=== PATIENT | male | born 1950 ===

== ENCOUNTER 2023-07-20 06:28 | Day surgery (SDC) | payer MEDICARE, OTHER, SELFPAY ==
--- NOTE | 2023-07-18 15:07 | PTCARENOTE ---
Patients 06/08 potassium- 3.3- Dr. Perez notified, no additional interventions required
[2023-07-20] VITALS (8 sets, daily range): BP systolic 116–160; BP diastolic 74–88; BMI 22.7
[2023-07-20] MEDS: Pyridium 200 MG PO (07:34)
[2023-07-20] MEDS: NORMOSOL-R 1000 IV (08:00)
--- NOTE | 2023-07-20 10:52 | SUR.PHASEI ---
patient post op cystoscopy and stone removal, comfortable in pacu, easily arousable, Dr Alexander visits and explains OR findings and post op plan
[2023-07-24 12:18] LABS: Stone Analysis Mass 190 mg
== END 2023-07-20 12:15 | disposition home or self-care (01) ==
LOC: SDS 06:28
PROVIDERS: ATTENDING PHYSICIAN Specialist
DX: N13.2 Hydronephrosis with renal and ureteral calculous obstruction (principal); N29 Other disorders of kidney and ureter in diseases classified elsewhere; E83.59 Other disorders of calcium metabolism
CPT/HCPCS: 52356; 74018; 76000; 82365; 93005; A4300; C1894; C2617

== ENCOUNTER → 2023-08-21 06:36 | Day surgery (SDC) | payer MEDICARE, OTHER, SELFPAY | LOC: GI 06:36 | PROVIDERS: ATTENDING PHYSICIAN Internal Medicine Gastroenterology | DX: Z12.11 Encounter for screening for malignant neoplasm of colon (principal); D12.3 Benign neoplasm of transverse colon; K57.30 Diverticulosis of large intestine without perforation or abscess without bleeding; K64.8 Other hemorrhoids; Z86.010 Personal history of colon polyps | CPT/HCPCS: 45385; 88305 ==

== ENCOUNTER → 2023-12-19 14:32 | Outpatient (REF) | payer MEDICARE, OTHER, SELFPAY | LOC: HWRAD 14:32 | PROVIDERS: ATTENDING PHYSICIAN Specialist; FAMILY PHYSICIAN Internal Medicine | DX: N20.0 Calculus of kidney (principal) | CPT/HCPCS: 74018 ==

== ENCOUNTER 2024-01-04 18:33 | Inpatient (IN) | payer MEDICARE, OTHER, SELFPAY ==
[2024-01-04] VITALS (8 sets, daily range): BP systolic 117–191; BP diastolic 65–89; BMI 22.9
--- NOTE | 2024-01-04 15:26 | ED.GENMED ---
History of Present Illness
<Zara Murphy PA-C - Last Filed: 01/04/24 19:30>
General
Chief Complaint: Abdominal Symptoms
Source: patient
Exam Limitations: none
Time Seen by Provider: 01/04/24 15:25
Nursing documentation reviewed up to this point in time: agreed with
History of Present Illness
History of Present Illness:
73-year-old male with a past medical history of kidney stones with previous left ureteral sent placement, hypertension, hyperlipidemia, hypothyroidism, asthma presenting emergency department today with concerns of left-sided abdominal pain and
diffuse flank pain. Patient reports that this feels exactly like his kidney stones. Patient states that this current episode of pain started earlier this morning. He follows with Dr. Alexander and called his office today and they advised him to take
Tylenol or Motrin for pain. Patient states that his pain got worse and he started to have vomiting and so he reported to the emergency department. Patient denies any fevers or chills, burning with urination, urinary frequency, urinary urgency.
Denies hematuria. Patient had outpatient imagining study done with Dr. Alexander 10 days ago which demonstrated large stones in the right kidney.
Review of Systems
<Zara Murphy PA-C - Last Filed: 01/04/24 19:30>
Review of Systems
All Other Systems: ROS reviewed and negative except as documented in HPI and ROS
Phy Exam
<Zara Murphy PA-C - Last Filed: 01/04/24 19:30>
Physical Exam
Physical Exam:
General: Patient appears uncomfortable secondary to pain, but non-toxic.
Skin: Warm and dry, no rashes or lesions
Head: Normocephalic, atraumatic
Eyes: Sclera non-icteric. EOMs intact. PERRLA.
Cardiac: Regular rate and rhythm, no murmurs.
Peripheral Vascular: No lower extremity swelling or edema
Pulm: Normal respiratory effort
Abdomen: Bilateral lower abdominal quadrants tender to palpation with guarding. Bilateral CVA tenderness.
Neuro: CN II-XII intact, no focal neurologic deficits.
Psychiatric: Appropriate mood and affect.
Course
Jameylt;Zara Murphy PA-C - Last Filed: 01/04/24 19:30>
Orders/Labs/Results
Orders:
Orders
01/04/24 15:39
0.9% Sodium Chloride 500 ml [Nss] 500 ml IV BOLUS
Ketorolac [Toradol] 15 mg IV NOW STA
Ondansetron Injectable [Zofran] 4 mg IV NOW STA
01/04/24 15:40
CT Abd/pel Without Iv Or Oral Urgent
Comment:
Reason For Exam: left flank pain, left abdominal pain
01/04/24 16:18
Complete Blood Count/With Diff Urgent
Comprehensive Metabolic Panel Urgent
Lipase Urgent
01/04/24 17:20
CefTRIAXone [Rocephin] 1,000 mg IV NOW STA
01/04/24 17:24
0.9% Sodium Chloride 500 ml [Nss] 500 ml IV BOLUS
01/04/24 17:26
Prochlorperazine [Compazine] 5 mg IV NOW STA
01/04/24 17:28
HYDROmorphone [Dilaudid] 0.5 mg IV NOW STA
01/04/24 17:49
Urinalysis Reflex To Culture Urgent
Date Specimen was Collected: 01/04/24
Time Specimen was Collected: 15:46
Urine Microscopic Reflex Cult Urgent
01/04/24 18:02
UROLOGY CONSULT Urgent
Consulting Provider: Hema Martinez
Was physician already notified: Yes
01/04/24 18:19
CefTRIAXone [Rocephin] 1,000 mg IV NOW STA
01/04/24 18:21
Admit/Transfer Patient As Directed
Co-Sign Provider:
Level of Care: Inpatient admission
Assign to:: Telemetry
Physician / Group: suzie martinez
Diagnosis: Hold obstructive uropathy, hydronephrosis, pyelonephritis
Reason for Telemetry: Arrhythmia
Date to Stop Telemetry: 01/07/24
Time to Stop Telemetry: 11:00
Reason for Hospitalization: Hold obstructive uropathy, hydronephrosis, pyelonephritis
Expected length of stay greater than two midnights?: Yes
ELOS- Estimated Length of Stay in days: 3
I certify the patient meets the requirements for IP care: Yes
PRN Pain Medication Management As Directed
May give lesser potent ordered pain med per pt: Yes
preference::
Protocol:: Medication orders for pain may be administered in a
manner that supports deferring to patient preference
when the pt is:
- Requesting an ordered lesser potent pain medication.
Least to most potent pain medications are defined
as: acetaminophen < NSAID < tramadol < opioids
(morphine, oxycodone, hydromorphone).
- Requesting a lesser dose of the same medication IF
ORDERED.
- Requesting a less intrusive route of administration
if both routes are prescribed by the provider (PO <
IV).
01/04/24 18:23
Code Status As Directed
Resuscitation Status: Full Code
01/05/24 Breakfast
NPO
Allow oral meds: Yes
Allow clear liquids: No
01/05/24 17:00
CefTRIAXone [Rocephin] 2,000 mg IV Q24H
01/07/24 11:00
DC Protocol for Telemetry ONCE
Abnormal Lab Results
01/04/24 01/04/24
16:18 17:49
WBC 17.1 H 10^3/uL
(4.8-10.8)
Abs Immat Gran (auto) 0.1 H 10^3/uL
(0-0.05)
Absolute Neuts (auto) 14.6 H 10^3/uL
(1.4-6.5)
Absolute Monos (auto) 0.9 H 10^3/uL
(0.1-0.6)
Neutrophils % 85.1 H %
(42.2-75.2)
Lymphocytes % 8.1 L %
(20.5-51.1)
Carbon Dioxide 33 H mmol/L
(22-30)
BUN 25 H mg/dl
(9-20)
Glucose 135 H mg/dl
(70-99)
Calcium 10.5 H mg/dl
(8.4-10.2)
Urine Ketones 2+ A
(Negative)
Ur Occult Blood Reflex 2+ A
(Negative)
Urine Bacteria (Reflex) Few A
(Negative)
01/04/24 16:18
01/04/24 16:18
Vital Signs
Initial and Last Documented VS:
Initial Vital Signs
Temp Pulse Resp BP Pulse Ox
98.5 F 69 16 172/89 98
01/04/24 15:19 01/04/24 15:19 01/04/24 15:19 01/04/24 15:19 01/04/24 15:19
Last Documented Vital Signs
Temp Pulse Resp BP Pulse Ox
98.5 F 69 12 147/75 100
01/04/24 15:19 01/04/24 19:00 01/04/24 17:48 01/04/24 18:00 01/04/24 19:00
<Danita Flores, DO - Last Filed: 01/04/24 17:21>
Orders/Labs/Results
Orders:
Orders
01/04/24 15:39
0.9% Sodium Chloride 500 ml [Nss] 500 ml IV BOLUS
Ketorolac [Toradol] 15 mg IV NOW STA
Ondansetron Injectable [Zofran] 4 mg IV NOW STA
01/04/24 15:40
CT Abd/pel Without Iv Or Oral Urgent
Comment:
Reason For Exam: left flank pain, left abdominal pain
01/04/24 16:18
Complete Blood Count/With Diff Urgent
Comprehensive Metabolic Panel Urgent
Lipase Urgent
01/04/24 17:20
CefTRIAXone [Rocephin] 1,000 mg IV NOW STA
01/04/24 17:24
0.9% Sodium Chloride 500 ml [Nss] 500 ml IV BOLUS
01/04/24 17:26
Prochlorperazine [Compazine] 5 mg IV NOW STA
01/04/24 17:28
HYDROmorphone [Dilaudid] 0.5 mg IV NOW STA
01/04/24 17:49
Urinalysis Reflex To Culture Urgent
Date Specimen was Collected: 01/04/24
Time Specimen was Collected: 15:46
Urine Microscopic Reflex Cult Urgent
01/04/24 18:02
UROLOGY CONSULT Urgent
Consulting Provider: Hema Martinez
Was physician already notified: Yes
01/04/24 18:19
CefTRIAXone [Rocephin] 1,000 mg IV NOW STA
01/04/24 18:21
Admit/Transfer Patient As Directed
Co-Sign Provider:
Level of Care: Inpatient admission
Assign to:: Telemetry
Physician / Group: suzie martinez
Diagnosis: Hold obstructive uropathy, hydronephrosis, pyelonephritis
Reason for Telemetry: Arrhythmia
Date to Stop Telemetry: 01/07/24
Time to Stop Telemetry: 11:00
Reason for Hospitalization: Hold obstructive uropathy, hydronephrosis, pyelonephritis
Expected length of stay greater than two midnights?: Yes
ELOS- Estimated Length of Stay in days: 3
I certify the patient meets the requirements for IP care: Yes
PRN Pain Medication Management As Directed
May give lesser potent ordered pain med per pt: Yes
preference::
Protocol:: Medication orders for pain may be administered in a
manner that supports deferring to patient preference
when the pt is:
- Requesting an ordered lesser potent pain medication.
Least to most potent pain medications are defined
as: acetaminophen < NSAID < tramadol < opioids
(morphine, oxycodone, hydromorphone).
- Requesting a lesser dose of the same medication IF
ORDERED.
- Requesting a less intrusive route of administration
if both routes are prescribed by the provider (PO <
IV).
01/04/24 18:23
Code Status As Directed
Resuscitation Status: Full Code
01/05/24 Breakfast
NPO
Allow oral meds: Yes
Allow clear liquids: No
01/05/24 17:00
CefTRIAXone [Rocephin] 2,000 mg IV Q24H
01/07/24 11:00
DC Protocol for Telemetry ONCE
Abnormal Lab Results
01/04/24 01/04/24
16:18 17:49
WBC 17.1 H 10^3/uL
(4.8-10.8)
Abs Immat Gran (auto) 0.1 H 10^3/uL
(0-0.05)
Absolute Neuts (auto) 14.6 H 10^3/uL
(1.4-6.5)
Absolute Monos (auto) 0.9 H 10^3/uL
(0.1-0.6)
Neutrophils % 85.1 H %
(42.2-75.2)
Lymphocytes % 8.1 L %
(20.5-51.1)
Carbon Dioxide 33 H mmol/L
(22-30)
BUN 25 H mg/dl
(9-20)
Glucose 135 H mg/dl
(70-99)
Calcium 10.5 H mg/dl
(8.4-10.2)
Urine Ketones 2+ A
(Negative)
Ur Occult Blood Reflex 2+ A
(Negative)
Urine Bacteria (Reflex) Few A
(Negative)
01/04/24 16:18
01/04/24 16:18
Vital Signs
Initial and Last Documented VS:
Initial Vital Signs
Temp Pulse Resp BP Pulse Ox
98.5 F 69 16 172/89 98
01/04/24 15:19 01/04/24 15:19 01/04/24 15:19 01/04/24 15:19 01/04/24 15:19
Last Documented Vital Signs
Temp Pulse Resp BP Pulse Ox
98.5 F 69 12 147/75 100
01/04/24 15:19 01/04/24 19:00 01/04/24 17:48 01/04/24 18:00 01/04/24 19:00
Jameylt;Zara Murphy PA-C - Last Filed: 01/04/24 19:30>
MDM/Problems Addressed
Differential Diagnosis Includes:
Differentials include nephrolithiasis, pyelonephritis, acute kidney injury, acute cystitis
MDM/Problems Addressed:
Kidney stone:
73-year-old male with a past medical history of kidney stones with previous left ureteral sent placement, hypertension, hyperlipidemia, hypothyroidism, asthma presenting emergency department today with concerns of left-sided abdominal pain and
diffuse flank pain. Patient reports that this feels exactly like his kidney stones. Patient has nausea and vomiting associated with this. Patient is leukocytosis of 17 but no fever. He has elevated BUN. His CAT scan demonstrates a mid ureteral
calculus on the right measuring 7 mm with secondary obstructive uropathy and perinephric soft tissue stranding. Ceftriaxone was started. Urology made aware who advised to admit to hospitalist and they will see him tomorrow in the OR. Patient and
family updated with plan. Patient referred for admission.
Chronic conditions affecting care:
Recurrent kidney stones, asthma, diverticulitis, sleep apnea, hypertension
<Zara Murphy PA-C - Last Filed: 01/04/24 19:30>
*Pulse Oximetry
Patient hypoxic: no
*Critical Care Note
Total Time (30-74mins, 75-104mins- exclusive of procedures): Not Applicable
Data Reviewed
Review of Other/Old Records Reveals: Records (No previous ER physician documentation in [facility] to review), Operative Reports (Reviewed operative report from 07/20/2023) and Discharge Summary (No discharge summary [facility] to review)
Source: patient and records
<Zara Murphy PA-C - Last Filed: 01/04/24 19:30>
Patient Management
Discussion with other providers: [employer] (urology Dr. Martinez )
Escalation/DeEscalation of care consider admission/obs:
Patient referred for admission.
<Zara Murphy PA-C - Last Filed: 01/04/24 19:30>
Update Note
Update Note:
5:31 pm--minimal improvement in nausea, some improvement in pain, will add on compazine and dilaudid. Patient made aware of CT, Dr. Martinez consulted.
ED Attending Note
<Zara Murphy PA-C - Last Filed: 01/04/24 19:30>
-
Portions of this chart may have been created with voice recognition software.� Occasional wrong word or��sound alike� substitutions may have occurred due to the inherent limitations of voice recognition software.
<Danita Flores DO - Last Filed: 01/04/24 17:21>
ED Attending Note
Patient seen and examined by attending physician: Yes
I performed the substantive portion of visit, reviewed & personally made and approve the management plan that is documented in note by myself or MAIKOL.: Yes
I performed a history and physical exam of patient and discussed management with resident, I reviewed resident's note and agree with documented findings and plan of care.: Yes
ED Attending Note:
Patient seen and evaluated at bedside, 73-year-old male with history of kidney stones with history of stenting and lithotripsy presenting to the emergency department for lower abdominal pain. Patient reports acute onset of symptoms this afternoon
with associated nausea and vomiting. Patient reports that he saw his urologist last week, had a KUB was told that he had a large stone in his right kidney. Patient reports his symptoms feel consistent with kidney stone. Denies associated fever.
Denies hematuria or urinary complaints. He tried Tylenol Motrin prior to arrival without relief. Vital signs significant for hypertension, however patient appears uncomfortable on examination.
Patient however nontoxic. Benign cardiac and pulmonary exam. On abdominal exam, no focal reproducible tenderness. Abdomen soft and nondistended. Given symptom presentation and history, concern for nephrolithiasis and possible obstructing renal
stone. Lower suspicion for infected stone, absence of fever, again nontoxic in appearance. Patient has dry mucous membranes, reports several episodes of vomiting prior to arrival. Will start on IV fluids, Toradol for pain, Zofran for nausea.
Plan for CT imaging and laboratory analysis/urinalysis
17:20 -patient with significant leukocytosis. In addition, patient with obstructive uropathy with perinephric stranding. For this reason infected stone is a consideration. Will consult with urology with plan for admission. Will start antibiotics
Discharge Plan
Departure
Patient Disposition: Admit
Date of Disposition: 01/04/24
Time of Disposition: 17:33
Admit to: Med/Surg
Presentation/result/management discussed w/ accepting MD/DO: Hospitalist
Patient with high blood pressure during this ER visit?: Yes
Condition: Fair
Discharge Problem:
Kidney stone, Pyelonephritis
Interventions
Interventions:
*Risk Screen - Suicide Last Done: 01/04/24 15:57
*General Assessment Last Done: 01/04/24 15:57
*Neglect/Abuse Screening Last Done: 01/04/24 15:57
ED- Fall Risk Assessment Last Done: 01/04/24 15:57
*ED COVID-19 Vaccine History Last Done: 01/04/24 15:57
ZU-Aplkrc-Uiplypdemd Assessment Last Done: 01/04/24 15:57
[2024-01-04] MEDS: NSS 500 IV ×2 (16:21→17:36)
[2024-01-04] MEDS: TORADOL 15 MG IV (16:24)
[2024-01-04] MEDS: ZOFRAN 4 MG IV (16:25)
[2024-01-04 16:38] LABS: % Basophils 0.5 % (0-2); % Eosinophils 0.5 % (0-6); % Immature Granulocytes 0.5 % (0-0.5); % Lymphocytes 8.1 % (20.5-51.1); % Monocytes 5.3 % (1.7-9.3); % Neutrophils 85.1 % (42.2-75.2); Absolute Basophils 0.1 10^3/uL (0-0.2); Absolute Eosinophils 0.1 10^3/uL (0-0.7); Absolute Immature Granulocytes 0.1 10^3/uL (0-0.05); Absolute Lymphocytes 1.4 10^3/uL (1.2-3.4); Absolute Monocytes 0.9 10^3/uL (0.1-0.6); Absolute Neutrophils 14.6 10^3/uL (1.4-6.5); Hematocrit 47.9 % (39.0-52.0); Hemoglobin 16.1 g/dL (13.0-18.0); Mean Corp Hgb Conc. 33.6 g/dL (33.0-37.0); Mean Corpuscular Hgb 27.6 pg (27.0-31.0); Mean Corpuscular Volume 82.2 fL (80.0-94.0); Mean Platelet Volume 9.7 fL (7.4-10.4); Nucleated Red Blood Cells % 0 % (-); Platelet Count 240 10^3/uL (130-400); Red Blood Cell Count 5.83 10^6/uL (4.70-6.10); Red Cell Dist. Width 13.5 % (11.5-14.5); White Blood Cell Count 17.1 10^3/uL (4.8-10.8)
[2024-01-04 16:47] LABS: ALT (SGPT) 18 U/L (0-50); AST (SGOT) 23 U/L (17-59); Albumin 4.6 g/dl (3.5-5.0); Alkaline Phosphatase 99 U/L (38-126); Blood Urea Nitrogen 25 mg/dl (9-20); Calcium 10.5 mg/dl (8.4-10.2); Carbon Dioxide 33 mmol/L (22-30); Chloride 100 mmol/L (98-107); Estimated Creatinine Clearance 53 ml/min; Glucose 135 mg/dl (70-99); Lipase 97 U/L (23-300); Potassium 4.3 mmol/L (3.5-5.1); Sodium 142 mmol/L (135-145); Total Bilirubin 1.3 mg/dl (0.2-1.3); Total Protein 7.2 g/dl (6.3-8.2); eGFR > 60.00
[2024-01-04] MEDS: COMPAZINE 5 MG IV (17:37)
[2024-01-04] MEDS: DILAUDID 0.5 MG IV (17:39)
[2024-01-04] MEDS: ROCEPHIN 1000 MG IV ×2 (17:41→18:51)
--- NOTE | 2024-01-04 17:54 | HPS.HSE ---
Family Physician
-
Family Physician: Jorge Manzanares
Chief Complaint
-
Abdominal pain, flank pain
History of Present Illness
73-year-old male with past medical history of nephrolithiasis, hypertension and hyperlipidemia, hypothyroidism, asthma came to the hospital with left side abdominal pain and left flank pain.� Patient had nephrolithiasis with hydronephrosis before
and had stent placement.� Patient follow-up with Dr. Alexander as outpatient.� Does also endorse nausea vomiting.� Denies any chest pain.
Medical History
Past Medical History
Past Medical History: Reports Asthma, HTN, Hypercholesterolemia, Hypothyroidism and Other (nepholithiasis)
Past Surgical History: Reports Urological
Social History
Alcohol: None
Family History
Family History: Not pertinent
Allergies / Home Medications
Allergies reflects when Allergies were last updated in [employer].
Home Medications with original date entered in [employer]
Allergy/Medication List:
Allergies
Allergy/AdvReac Type Severity Reaction Status Date / Time
Penicillins Allergy childhood Verified 01/04/24 15:21
Home Medications
Bifidobacterium infantis 4 mg capsule (Align) 4 mg PO DAILY 07/18/23
aspirin 81 mg tablet,delayed release 81 mg PO HS 07/18/23
atorvastatin 20 mg tablet 20 mg PO HS 07/18/23
calcitriol 0.5 mcg capsule 0.5 mcg PO DAILY 07/18/23
cholecalciferol (vitamin D3) 50 mcg (2,000 unit) tablet (Vitamin D3) 50 mcg PO DAILY 07/18/23
escitalopram oxalate 20 mg tablet (Lexapro) 20 mg PO HS 07/18/23
febuxostat 40 mg tablet (Uloric) 40 mg PO DAILY 07/18/23
icosapent ethyl 1 gram capsule (Vascepa) 2 g PO DAILY 07/18/23
levothyroxine 75 mcg tablet 75 mcg PO DAILY 07/18/23
metoprolol succinate 25 mg tablet,extended release 24 hr (Toprol XL) 25 mg PO BID 07/18/23
potassium citrate 15 mEq (1,620 mg) tablet,extended release 1,620 mg PO DAILY 07/18/23
amlodipine 2.5 mg tablet 2.5 mg PO DAILY 07/20/23
chlorthalidone 25 mg tablet 25 mg PO DAILY 01/04/24
diazepam 5 mg tablet 5 mg PO TIDPRN PRN anxiety 01/04/24
Review of Systems
-
History Source: Patient
A 12 point ROS was completed and negative except as noted: Yes
Abdomen/GI: Reports Nausea and Vomiting
: Reports Flank Pain
Physical Exam
Vital Signs
Vital Signs
Temp Pulse Resp BP Pulse Ox
98.5 F 54 11 174/79 98
01/04/24 15:19 01/04/24 17:00 01/04/24 17:00 01/04/24 17:00 01/04/24 17:00
Physical Exam
General: Well Nourished and No Apparent Distress
HEENT: Anicteric and Moist mucous membranes
Respiratory: Clear; No Wheezes
Cardiac: S1/S2 and Regular Rhythm
Breast: Deferred by me
GI: Soft, Non Distended, Normal Bowel Sounds and Tender
Rectal: Deferred by Provider
Genito-urinary: No Ramos
Musculoskeletal: No Edema
Neuro: Awake, Alert and Oriented
Laboratory Results
-
01/04/24 16:18
01/04/24 16:18
Laboratory Results
Total Bilirubin 1.3 mg/dl (0.2-1.3) 01/04/24 16:18
AST 23 U/L (17-59) 01/04/24 16:18
ALT 18 U/L (0-50) 01/04/24 16:18
Alkaline Phosphatase 99 U/L (38-126) 01/04/24 16:18
Lipase 97 U/L (23-300) 01/04/24 16:18
Data Reviewed
-
Lab Data: Labs Reviewed by me and Discussed with Patient
Impression/Plan
-
Flank pain secondary to obstructive uropathy with impacted stone with pyelonephritis
Monitor leukocytosis
Continue ceftriaxone
Ua noted; will need Ua in OR
blood cx
N.p.o. past midnight for OR tomorrow
Urology consulted
Gentle hydration
Previous history of renal stones,calcium stones
CT scan with 2 right renal calculi largest 1 cm. + Hydronephrosis. perinephric stranding concerning for pyelonephritis stable.
1.5 centimeter low-attenuation mass in the pancreatic head.
Patient has been aware of this and has been following up with physician with serial imaging
monitor outpatient
Hypercalcemia
Fluids
She will history of hypothyroidism
Continue Synthroid
History of hypertension continue with Toprol, hold chlorthalidone, continue amlodipine
Hyperlipidemia
History of asthma
DVT prophylaxis
Lovenox
Full
I spent a total of 77 minutes with the patient or on the floor. More than 50% of this time involved counseling and coordination of care.
[2024-01-04 18:01] LABS: Urine Albumin Negative (Neg - Trace); Urine Bilirubin Negative (Negative); Urine Character Clear (Clear); Urine Color Yellow; Urine Glucose Negative (Negative); Urine Ketone 2+ (Negative); Urine Leukocyte Negative (Negative); Urine Nitrite Negative (Negative); Urine Occult Blood 2+ (Negative); Urine Urobilinogen Negative (Neg - 1+)
[2024-01-04 18:26] LABS: Urine Bacteria Few (Negative); Urine Red Blood Cell 0-2 /HPF (0-2)
[2024-01-04] MEDS: STERILE WATER FOR INJECTION 10 ML IV (18:51)
[2024-01-04] MEDS: TOPROL XL 25 MG PO (20:48)
[2024-01-04] MEDS: NSS 1000 IV (20:49)
[2024-01-04] MEDS: LEXAPRO 20 MG PO (21:12)
[2024-01-05] VITALS (11 sets, daily range): BP systolic 107–144; BP diastolic 47–76; BMI 22.9
[2024-01-05] MEDS: SYNTHROID 75 MCG PO (05:27)
[2024-01-05 05:51] LABS: % Basophils 0.5 % (0-2); % Eosinophils 1.1 % (0-6); % Immature Granulocytes 0.6 % (0-0.5); % Lymphocytes 18.3 % (20.5-51.1); % Monocytes 9.2 % (1.7-9.3); % Neutrophils 70.3 % (42.2-75.2); Absolute Basophils 0.1 10^3/uL (0-0.2); Absolute Eosinophils 0.2 10^3/uL (0-0.7); Absolute Immature Granulocytes 0.1 10^3/uL (0-0.05); Absolute Lymphocytes 2.6 10^3/uL (1.2-3.4); Absolute Monocytes 1.3 10^3/uL (0.1-0.6); Absolute Neutrophils 9.9 10^3/uL (1.4-6.5); Hematocrit 38.2 % (39.0-52.0); Hemoglobin 13.1 g/dL (13.0-18.0); Mean Corp Hgb Conc. 34.3 g/dL (33.0-37.0); Mean Corpuscular Hgb 27.6 pg (27.0-31.0); Mean Corpuscular Volume 80.6 fL (80.0-94.0); Mean Platelet Volume 9.5 fL (7.4-10.4); Nucleated Red Blood Cells % 0 % (-); Platelet Count 213 10^3/uL (130-400); Red Blood Cell Count 4.74 10^6/uL (4.70-6.10); Red Cell Dist. Width 13.5 % (11.5-14.5); White Blood Cell Count 14.1 10^3/uL (4.8-10.8)
--- NOTE | 2024-01-05 06:38 | PTCARENOTE ---
Patient arrived on unit @1943 via stretcher from ED, ambulate to bed. AAOx3 denies any pain or discomfort. Skin assessment completed, oriented to unit, call zayas within reach.
[2024-01-05 06:39] LABS: ALT (SGPT) 13 U/L (0-50); AST (SGOT) 20 U/L (17-59); Albumin 3.3 g/dl (3.5-5.0); Alkaline Phosphatase 67 U/L (38-126); Blood Urea Nitrogen 28 mg/dl (9-20); Calcium 8.6 mg/dl (8.4-10.2); Carbon Dioxide 31 mmol/L (22-30); Chloride 105 mmol/L (98-107); Estimated Creatinine Clearance 40 ml/min; Glucose 96 mg/dl (70-99); Potassium 3.4 mmol/L (3.5-5.1); Sodium 141 mmol/L (135-145); Total Bilirubin 0.8 mg/dl (0.2-1.3); Total Protein 5.4 g/dl (6.3-8.2); eGFR 45.78
--- NOTE | 2024-01-05 07:15 | W.PN.UPDATE ---
Update Note
Progress Note Update
H/o nephrocalcinosis
H/o nephrolithiasis
07/2023: s/p left URS/LL/stone extraction/stent placement (Dr. Alexander) - noted to have several large left ureteral stones.
Admitted with abdominal pain, N/V.
Afebrile, HDS
WBC markedly elevated - 17
Cr WNL
UA not grossly indicative of UTI
CT imaging - 10 mm proximal right ureteral stone, 7 mm mid right ureteral stone, moderate periureteral and perinephric stranding
A/P:
Obstructing right ureteral stones
Leukocytosis
- To OR today for cysto/right stent placement (possible URS/LL/stone extraction if feasible)
- Continue IV abx
- Surgical consent signed on chart
D/w patient and spouse this AM - reviewed risks, benefits, alternatives, and potential complications of URS/LL/stone extraction/stent placement including but not limited to urosepsis, bleeding, ureteral/bladder injury, risk of ureteral stricture
formation, need for additional procedures.
[2024-01-05] MEDS: ULORIC 40 MG PO (07:35)
[2024-01-05] MEDS: VITAMIN D3 (cholecalciferol) 50 MCG PO (07:35)
[2024-01-05] MEDS: TOPROL XL 25 MG PO ×2 (07:35→20:22)
[2024-01-05] MEDS: VISBIOME 1 CAP PO (07:35)
[2024-01-05] MEDS: NORVASC 2.5 MG PO (07:35)
[2024-01-05] MEDS: NSS 1000 IV ×2 (08:43→20:23)
[2024-01-05] MEDS: KCL 20 MEQ PO (08:43)
--- NOTE | 2024-01-05 10:35 | W.PN.HOSP.TC ---
Today's Communication/Plan
-
monitor vitals
see plan
cw abx
plan for OR today
monitor renal function
pain control
replete K
Assessment / Plan
Assessment / Plan
General: Well Nourished and No Apparent Distress
HEENT: Anicteric and Moist mucous membranes
Respiratory: Clear; No Wheezes
Cardiac: S1/S2 and Regular Rhythm
GI: Soft, Non Distended, Normal Bowel Sounds and Tender
Genito-urinary: No Ramos
Musculoskeletal: No Edema
Neuro: Awake, Alert and Oriented
Flank pain secondary to obstructive uropathy with impacted stone with pyelonephritis
Monitor leukocytosis
Continue ceftriaxone
Ua noted; will need Ua in OR
blood cx
N.p.o. for OR 01/04
Urology following
Gentle hydration
Previous history of renal stones,calcium stones
CT scan with 2 right renal calculi largest 1 cm. + Hydronephrosis. perinephric stranding concerning for pyelonephritis stable.
JOY
likely 2/2 obstructive uropathy
monitor
Hypokalemia
replete K
1.5 centimeter low-attenuation mass in the pancreatic head.
Patient has been aware of this and has been following up with physician with serial imaging
monitor outpatient
Hypercalcemia
Fluids
improved
history of hypothyroidism
Continue Synthroid
History of hypertension continue with Toprol, hold chlorthalidone, continue amlodipine
Hyperlipidemia
History of asthma
DVT prophylaxis
Lovenox
Full
Anticipated Discharge: 24 - 48 hours
Subjective/Interval History
-
Date of Service: January 05, 2024
denies nausea
Objective Data
-
Labs:
Laboratory Results
01/05/24
05:25
WBC 14.1 H
Hgb 13.1
Hct 38.2 L
Plt Count 213
Sodium 141
Potassium 3.4 L
Chloride 105
Carbon Dioxide 31 H
BUN 28 H
Creatinine 1.6 H
Glucose 96
Calcium 8.6 D
Total Bilirubin 0.8
AST 20
ALT 13
Alkaline Phosphatase 67
Vital Signs:
Vital Signs
Temp Pulse Resp BP Pulse Ox
98.3 F 65 18 141/71 98
01/05/24 07:30 01/05/24 07:30 01/05/24 07:30 01/05/24 07:30 01/05/24 08:15
I&O
01/04/24 01/05/24 01/06/24
06:59 06:59 06:59
Intake Total 884 / 884
Output Total 120 / 120
Balance 764 / 764
--- NOTE | 2024-01-05 15:56 | CM ---
Alert awake oriented patient who lives with his Dara who lives in a 2 story home with 2 step to enter and 14 steps to bed and bathroom. He is independent in driving and in all activities of daily living.He was offered VN he declined need.
[facility] V[facility] hx / No SNF history
Pharmacy [facility]
PCP DR Manzanares
PLAN Home Declined VN
--- NOTE | 2024-01-05 18:37 | W.IMMPOSTOP ---
Surgical Immed Post Op Note
-
Primary Surgeon: Peffer
Assisting Surgeon: none
Pre-op Diagnosis: R ureteral stone
Post-op Diagnosis: same
Procedure Performed: Cystoscopy, R ureteral stent
Anesthesia Type: general
Specimen / Cultures: urine culture post stent
Estimated Blood Loss: none
Complications: none
Operative Findings: mildly purulent urine above stone
[2024-01-05] MEDS: LEXAPRO 20 MG PO (21:34)
[2024-01-06 03:23] VITALS: BP 101/54
[2024-01-06 06:00] VITALS: BMI 23.6
[2024-01-06] MEDS: SYNTHROID 75 MCG PO (06:12)
[2024-01-06 07:30] VITALS: BP 138/62
[2024-01-06 07:35] LABS: % Basophils 0.2 % (0-2); % Eosinophils 0.1 % (0-6); % Immature Granulocytes 0.7 % (0-0.5); % Lymphocytes 14.3 % (20.5-51.1); % Monocytes 5.3 % (1.7-9.3); % Neutrophils 79.4 % (42.2-75.2); Absolute Immature Granulocytes 0.1 10^3/uL (0-0.05); Absolute Lymphocytes 1.9 10^3/uL (1.2-3.4); Absolute Monocytes 0.7 10^3/uL (0.1-0.6); Absolute Neutrophils 10.7 10^3/uL (1.4-6.5); Hematocrit 40.6 % (39.0-52.0); Hemoglobin 13.7 g/dL (13.0-18.0); Mean Corp Hgb Conc. 33.7 g/dL (33.0-37.0); Mean Corpuscular Hgb 27.1 pg (27.0-31.0); Mean Corpuscular Volume 80.2 fL (80.0-94.0); Mean Platelet Volume 9.8 fL (7.4-10.4); Nucleated Red Blood Cells % 0 % (-); Platelet Count 237 10^3/uL (130-400); Red Blood Cell Count 5.06 10^6/uL (4.70-6.10); Red Cell Dist. Width 13.4 % (11.5-14.5); White Blood Cell Count 13.4 10^3/uL (4.8-10.8)
[2024-01-06 08:11] LABS: ALT (SGPT) 15 U/L (0-50); AST (SGOT) 25 U/L (17-59); Albumin 3.6 g/dl (3.5-5.0); Alkaline Phosphatase 71 U/L (38-126); Blood Urea Nitrogen 31 mg/dl (9-20); Calcium 8.3 mg/dl (8.4-10.2); Carbon Dioxide 26 mmol/L (22-30); Chloride 106 mmol/L (98-107); Estimated Creatinine Clearance 53 ml/min; Glucose 106 mg/dl (70-99); Potassium 3.3 mmol/L (3.5-5.1); Sodium 142 mmol/L (135-145); Total Bilirubin 0.6 mg/dl (0.2-1.3); eGFR > 60.00
[2024-01-06] MEDS: VISBIOME 1 CAP PO (09:28)
[2024-01-06] MEDS: ULORIC 40 MG PO (09:28)
[2024-01-06] MEDS: VITAMIN D3 (cholecalciferol) 50 MCG PO (09:29)
[2024-01-06] MEDS: NORVASC 2.5 MG PO (09:29)
[2024-01-06] MEDS: TOPROL XL 25 MG PO (09:29)
[2024-01-06] MEDS: KCL 20 MEQ PO (09:30)
[2024-01-06 11:30] VITALS: BP 147/67
--- NOTE | 2024-01-06 11:50 | W.PN.URO.CBU ---
Today's Communication / Plan
-
Okay for discharge
Continue antibiotic
Outpatient follow up
Assessment / Plan
-
73M with long hs of stones
p/w pain and leukocytosis with obstructing R side stones
s/p stent 01/04
- Continue abx - switch to PO cefdinir
- Okay to discharge home from urology standpoint - will follow up final cx results
- Follow up with Dr. Alexander for stone procedure
Small bladder lesion seen on cystoscopy low suspicion. Discussed with with patient and Dr. Alexander who will reexamine this area at time of ureteroscopy
Diagnosis
-
Date of Service: January 06, 2024
-
Patient Diagnosis:
Ureteral stone
Leukocytosis
Post Op s/p R stent 01/06/24
Subjective
-
tolerating stent well
minimal symptoms
no fevers
Objective
-
Vital Signs
Temp Pulse Resp BP Pulse Ox
98.3 F 61 16 138/62 98
01/06/24 07:30 01/06/24 07:30 01/06/24 07:30 01/06/24 07:30 01/06/24 07:30
Intake and Output
01/05/24 01/06/24 01/07/24
06:59 06:59 06:59
Intake Total 884 / 884 1035 / 1035
Output Total 120 / 120 925 / 925
Balance 764 / 764 110 / 110
Intake:
Oral fluids 120 / 120 960 / 960
IV fluids (Total) 764 / 764 75 / 75
normosol 75 / 75
Output:
Urine, Voided 120 / 120 925 / 925
Other:
Number of approximated MODERATE 1 2
amounts of urine
Laboratory Results
01/06/24 05:33
01/06/24 05:33
Physical Exam
-
General - well developed, well nourished, no acute distress
Chest - clear
Abdomen - soft, non-tender
Skin - warm & dry with no rash
Neuro - AOx3, no motor deficits
Extremities - no clubbing, no cyanosis, no edema
--- NOTE | 2024-01-06 12:20 | W.PN.HOSP.TC ---
Today's Communication/Plan
-
Monitor vital signs
see plan
Discharge today on oral antibiotic
Replete potassium
Patient will follow-up with urology outpatient
Time of discharge 38 minutes
Assessment / Plan
Assessment / Plan
General: Well Nourished and No Apparent Distress
HEENT: Anicteric and Moist mucous membranes
Respiratory: Clear; No Wheezes
Cardiac: S1/S2 and Regular Rhythm
GI: Soft, Non Distended, Normal Bowel Sounds and Tender
Genito-urinary: No Ramos
Musculoskeletal: No Edema
Neuro: Awake, Alert and Oriented
Flank pain secondary to obstructive uropathy with impacted stone with pyelonephritis
Monitor leukocytosis
Continue ceftriaxone; change to cefdinir on dc
per urology; urine intra Op looked infected; cx no growth hoever will treat with cefidnir on dc
blood cx NGTD
Urology following; s/p stent 01/04
Previous history of renal stones,calcium stones
CT scan with 2 right renal calculi largest 1 cm. + Hydronephrosis. perinephric stranding concerning for pyelonephritis stable.
JOY
likely 2/2 obstructive uropathy
improving
Hypokalemia
replete K
1.5 centimeter low-attenuation mass in the pancreatic head.
Patient has been aware of this and has been following up with physician with serial imaging
monitor outpatient
Hypercalcemia
Fluids
improved
history of hypothyroidism
Continue Synthroid
History of hypertension continue with Toprol, hold chlorthalidone, continue amlodipine
Hyperlipidemia
History of asthma
DVT prophylaxis
Lovenox
Full
Anticipated Discharge: Today
Subjective/Interval History
-
Date of Service: January 06, 2024
denies pain
Objective Data
-
Labs:
Laboratory Results
01/06/24
05:33
WBC 13.4 H
Hgb 13.7
Hct 40.6
Plt Count 237
Sodium 142
Potassium 3.3 L
Chloride 106
Carbon Dioxide 26
BUN 31 H
Creatinine 1.2
Glucose 106 H
Calcium 8.3 L
Total Bilirubin 0.6
AST 25
ALT 15
Alkaline Phosphatase 71
Vital Signs:
Vital Signs
Temp Pulse Resp BP Pulse Ox
98.3 F 61 16 138/62 98
01/06/24 07:30 01/06/24 07:30 01/06/24 07:30 01/06/24 07:30 01/06/24 07:30
I&O
01/05/24 01/06/24 01/07/24
06:59 06:59 06:59
Intake Total 884 / 884 1035 / 1035
Output Total 120 / 120 925 / 925
Balance 764 / 764 110 / 110
[2024-01-06] MEDS: NSS 1000 IV (12:23)
--- NOTE | 2024-01-06 12:31 | W.DCSUMMARY ---
Discharge Summary
Discharge Data
Date of Admission: 01/04/24
Date of Discharge: 01/06/24
-
Pending Results: No
Hospital Course
73-year-old male with past medical history of pancreatic head mass, hypothyroidism, hypertension hyperlipidemia, asthma, nephrolithiasis came to the hospital with flank pain secondary to obstructive uropathy due to impacted stone resulting in
pyelonephritis. Patient was initially started with IV antibiotic which was later transitioned to oral antibiotics prior to discharge. Patient was seen by urology and was taken for stent placement. CT scan which was done initially showed
obstructive stone with hydronephrosis and perinephric stranding. Urine culture was done which did not show any growth however given patient symptoms patient was treated with antibiotics. He also had acute kidney injury which over time continue to
improve. Once his symptoms continue to improve, he was then discharged home with instructions to follow-up with all his physicians outpatient.
Discharge Plan
-
Patient Disposition: Home (Routine Discharge)
Discharge Diagnosis/Procedures: Pyelonephritis
Obstructive uropathy with impacted stone
Acute kidney injury
Hypokalemia
1.5 cm low-attenuation mass in the pancreatic head
Hypercalcemia
Small bladder lesion
Diet: As tolerated
Activity: As tolerated
Driving Restrictions: As prior to admission
Bathing Restrictions: None
Referrals:
Jorge Manzanares MD [Family Provider] - in less than 1 week
Clyde Alexander MD [Active] -
Prescriptions:
New
cefdinir 300 mg capsule
300 mg PO BID Qty: 16 0RF
Probiotic 10 billion cell capsule
10,000 mmu cells PO DAILY Qty: 8 0RF
Continued
atorvastatin 20 mg Tablet
20 mg PO HS
aspirin 81 mg Tablet,Delayed Release (Dr/Ec)
81 mg PO HS
levothyroxine 75 mcg Tablet
75 mcg PO DAILY
calcitriol 0.5 mcg Capsule
0.5 mcg PO DAILY
metoprolol succinate [Toprol XL] 25 mg Tablet Extended Release 24 Hr
25 mg PO BID
escitalopram oxalate [Lexapro] 20 mg Tablet
20 mg PO HS
Align 4 mg Capsule
4 mg PO DAILY
cholecalciferol (vitamin D3) [Vitamin D3] 50 mcg (2,000 unit) Tablet
50 mcg PO DAILY
febuxostat [Uloric] 40 mg Tablet
40 mg PO DAILY
potassium citrate 15 mEq Tablet Extended Release
1,620 mg PO DAILY
icosapent ethyl [Vascepa] 1 gram Capsule
2 g PO DAILY
amlodipine 2.5 mg Tablet
2.5 mg PO DAILY
diazepam 5 mg tablet
5 mg PO TIDPRN PRN (Reason: anxiety)
Patient Comments:
01/04/2024: last filled 12/13/23, 45 tabs for 15 days from [facility]
Held
chlorthalidone 25 mg tablet
25 mg PO DAILY
Hold Instructions: Restart when blood pressure greater than 140/90
Discharge Orders:
Discharge Patient (As Directed); Ordered 01/06/24
Ordered By: Butch Ambrose
Discharge Date and Time
Print Language: SAMI
--- NOTE | 2024-01-06 12:43 | CM ---
Case management following for d/c planning
Pt for d/c today
Has ride with home
Discussed IMM
Declined VN
Plan - home no needs
== END 2024-01-06 14:46 | disposition home or self-care (01) | DRG 660 ==
LOC: 3 WEST ACU 18:33
PROVIDERS: Physician Assistant; Urology; ADMITTING PHYSICIAN Internal Medicine; EMERGENCY PHYSICIAN Student in an Organized Health Care Education/Training Program; FAMILY PHYSICIAN Internal Medicine
PROC: 0T768DZ Dilation of Right Ureter with Intraluminal Device, Via Natural or Artificial Opening Endoscopic (ICD-10-PCS; 2024-01-04)
DX: N13.6 Pyonephrosis (principal); N20.1 Calculus of ureter; N20.0 Calculus of kidney; N17.9 Acute kidney failure, unspecified
CPT/HCPCS: 74018; 74176; 76000; 80053; 81003; 81015; 83690; 85025; 87040; 87086; 96361; 96374; 96375; 99285; A4300; C1758; C1769; C1894; C2617

== ENCOUNTER 2024-02-22 06:29 | Day surgery (SDC) | payer MEDICARE, OTHER, SELFPAY ==
--- NOTE | 2024-02-06 08:30 | PTCARENOTE ---
Lisa and Perri @ Dr. Alexander office notified of patients 01/05 potassium 3.3
--- NOTE | 2024-02-06 13:05 | PTCARENOTE ---
Patients 01/05 potassium- 3.3- reviewed by Dr. Obrien- no additional interventions required
[2024-02-22] VITALS (12 sets, daily range): BP systolic 126–172; BP diastolic 70–87; BMI 23.3
[2024-02-22] MEDS: NORMOSOL-R/PLASMALYTE-A 1000 IV (09:01)
[2024-02-22] MEDS: Pyridium 200 MG PO (09:01)
== END 2024-02-22 12:50 | disposition home or self-care (01) ==
LOC: SDS 06:29
PROVIDERS: ATTENDING PHYSICIAN Specialist
DX: N20.2 Calculus of kidney with calculus of ureter (principal); C7A.098 Malignant carcinoid tumors of other sites; N32.9 Bladder disorder, unspecified
CPT/HCPCS: 52356; 52234; 88305; 74018; 76000; 88341; 88342; 93005; C1894; C2617

== ENCOUNTER 2024-04-02 06:35 | Day surgery (SDC) | payer MEDICARE, OTHER, SELFPAY ==
[2024-04-02] VITALS (9 sets, daily range): BP systolic 138–167; BP diastolic 81–89; BMI 22.7
[2024-04-02] MEDS: NORMOSOL-R/PLASMALYTE-A 1000 IV (09:09)
[2024-04-02] MEDS: Pyridium 200 MG PO (09:12)
== END 2024-04-02 13:00 | disposition home or self-care (01) ==
LOC: SDS 06:35
PROVIDERS: ATTENDING PHYSICIAN Specialist
DX: D30.3 Benign neoplasm of bladder (principal)
CPT/HCPCS: 52235; 88307; 88341; 88342

== ENCOUNTER → 2024-10-09 13:14 | Outpatient (REF) | payer MEDICARE, OTHER, SELFPAY | LOC: HWRAD 13:14 | PROVIDERS: ATTENDING PHYSICIAN Specialist; FAMILY PHYSICIAN Internal Medicine | DX: N20.0 Calculus of kidney (principal) | CPT/HCPCS: 74018 ==

== ENCOUNTER → 2025-04-15 13:37 | Outpatient (REF) | payer MEDICARE, OTHER, SELFPAY | LOC: HWRAD 13:37 | PROVIDERS: ATTENDING PHYSICIAN Specialist; FAMILY PHYSICIAN Internal Medicine; REFERRING PHYSICIAN Internal Medicine | DX: N20.0 Calculus of kidney (principal) | CPT/HCPCS: 74018 ==